=== PATIENT | female | born 1990 | race African-American/Black ===

== ENCOUNTER 2020-05-25 16:59 | Emergency (ER) | payer SELFPAY ==
[~2020-05-25] VITALS: Ht 162.6 cm; Wt 75.0 kg
[2020-05-25] MEDS ORDERED: FLUORESCEIN SODIUM 1MG/STRIP LEFTEYE ONE (19:00)
[2020-05-25 19:39] VITALS: BP 121/64
== END 2020-05-25 19:44 | disposition home or self-care (01) ==
LOC: ER 16:59
DX: H10.32 Unspecified acute conjunctivitis, left eye (principal)
CPT/HCPCS: 99283